=== PATIENT | female | born 1960 | race Two or more races ===

== ENCOUNTER 2022-09-25 20:58 | Inpatient (IN) | payer BC ==
[~2022-09-25] VITALS: Ht 170.2 cm; Wt 72.6 kg
--- NOTE | 2022-09-25 22:33 | NUR ---
Patient is able to ambulate with a walker
[2022-09-25] MEDS ORDERED: IV NORMAL SALINE 1000 ML BAG IV ONE (23:30)
--- NOTE | 2022-09-25 23:31 | NUR ---
Dr Irizarry at bedside MSE in progress
[2022-09-25 23:44] LABS: *BILIRUBIN,URIN NEGATIVE (NEGATIVE); *BLOOD, URINE NEGATIVE (NEGATIVE); *CLARITY,URINE CLEAR (CLEAR); *COLOR,URINE YELLOW (YELLOW); *KETONES,URINE TRACE (NEGATIVE); *UROBILINOGEN,URINE 0.2 E.U./dl (NORMAL); LEUKOCYTE ESTERASE ,URINE NEGATIVE (NEGATIVE); NITRITE, URINE NEGATIVE (NEGATIVE); PH,URINE 5.5 (5.0-8.0); UGLUCOSE NEGATIVE (NEGATIVE)
[2022-09-26] MEDS ORDERED: ALBU6.7H9 IH (00:09)
[2022-09-26] MEDS ORDERED: CITA10TA9 PO (00:09)
[2022-09-26] MEDS ORDERED: ESZO3TAB27 PO (00:09)
[2022-09-26] MEDS ORDERED: NORT10CA PO (00:09)
[2022-09-26] MEDS ORDERED: PANT40TA49 PO (00:09)
[2022-09-26] MEDS ORDERED: LEVO25TA9 PO (00:09)
[2022-09-26] MEDS ORDERED: FLUT16SP16 BNOSTRILS (00:09)
[2022-09-26 00:12] LABS: MEAN CORPUSCULAR HEMOGLOBIN 31.8 uug (24.7-32.8); MEAN CORPUSCULAR VOLUME 88.7 fL (75.5-95.3); PLATELET COUNT (AUTO) 193 K/uL (179-408)
[2022-09-26 00:14] LABS: CARBON DIOXIDE 26 mmol/L (21-32); CHLORIDE 104 mmol/L (98-107); CREATININE 0.7 mg/dL (0.6-1.3); GLUCOSE 153 mg/dL (74-106); POTASSIUM 3.8 mmol/L (3.5-5.1); UREA NITROGEN, BLOOD 16 mg/dL (7-18)
[2022-09-26] MEDS ORDERED: HYDROCODONE/APAP 10-325 MG TABLET PO ONE (00:15)
[2022-09-26] MEDS ORDERED: ONDANSETRON ODT 4 MG TAB.RAPDIS SL ONE (00:15)
[2022-09-26 00:23] LABS: ALANINE AMINOTRANSFERASE 34 U/L (14-59); ALKALINE PHOSPHATASE 53 U/L (50-136); ASPARTATE AMINOTRANSFERASE 26 U/L (15-37); BILIRUBIN,DIRECT 0.2 mg/dL (0.0-0.2); BILIRUBIN,TOTAL 0.7 mg/dL (0.2-1.0); TOTAL PROTEIN, SERUM 5.8 g/dL (6.4-8.2)
[2022-09-26] MEDS ORDERED: ONDANSETRON ODT 4 MG TAB.RAPDIS ONE (00:27)
[2022-09-26] MEDS ORDERED: HYDROCODONE/APAP 10-325 MG TABLET ONE (00:27)
--- NOTE | 2022-09-26 01:52 | NUR ---
Patient's systolic blood pressure is at 78. Dr. Irizarry made aware.
[2022-09-26] MEDS ORDERED: IV NS 1000 ML 1,000 ML IV ONE (02:00)
[2022-09-26] MEDS ORDERED: NOREPINEPHRINE BITARTRATE 8 MG in IV NORMAL SALINE 242 ML IV PRN ×4 (02:00)
--- NOTE | 2022-09-26 02:02 | NUR ---
called Kathryn ALFONSObailer operators supervisor. Made aware about order for Levophed 8mg in IV NS 242ml
[2022-09-26] MEDS ORDERED: NOREPINEPHRINE BITARTRATE 4 MG/4 ML VIAL IV ONE (02:13)
[2022-09-26] MEDS ORDERED: NOREPINEPHRINE BITARTRATE 8 MG in IV NORMAL SALINE 250 ML IV PRN (03:30)
[2022-09-26] MEDS ORDERED: ACETAMINOPHEN 650 MG SUPP.RECT RC PRN (03:30)
[2022-09-26] MEDS ORDERED: IV NS 1000 ML 1,000 ML IV PRN ×2 (03:30→08:30)
--- NOTE | 2022-09-26 04:08 | NUR ---
Patient is able to tolerate food and drink fluids. She is curently eating in her bed.
--- NOTE | 2022-09-26 04:22 | NUR ---
Umm Comer HOUSE MOVING SUPERVISOR at bedside, MSE in progress
--- NOTE | 2022-09-26 05:29 | NUR ---
Patient is able to use bedside commode.
[2022-09-26 06:34] LABS: HEMATOCRIT 24.3 % (31.2-41.9); MEAN CORPUSCULAR VOLUME 87.7 fL (75.5-95.3); PLATELET COUNT (AUTO) 198 K/uL (179-408)
[2022-09-26] MEDS ORDERED: ACETAMINOPHEN 325 MG TABLET ONE ×2 (06:44→11:37)
[2022-09-26 06:46] LABS: CREATININE 0.6 mg/dL (0.6-1.3); POTASSIUM 3.9 mmol/L (3.5-5.1)
[2022-09-26] MEDS: ACETAMINOPHEN 325 MG TABLET PO PRN ×2 (06:48→11:46)
[2022-09-26 06:51] LABS: BILIRUBIN,TOTAL 0.5 mg/dL (0.2-1.0); MAGNESIUM 1.7 mg/dL (1.8-2.4); TOTAL PROTEIN, SERUM 5.4 g/dL (6.4-8.2)
[2022-09-26 07:14] LABS: THYROID STIMULATING HORMONE 1.15 mIU/mL (0.358-3.740)
--- NOTE | 2022-09-26 07:24 | NUR ---
Handwritten report given to charge nurse and supervisor [employer] Mimi.
--- NOTE | 2022-09-26 07:40 | NUR ---
I assume care of Pt at this time. Short staffed charting. Pt is awke A/o x4. RR normal and unlabored. Continue w/ fluid infusion and Levophed drip at rate of 0.02mcg. Lt hip incision site w/ C/D/I dressing. Ice pack applied to Lt hip.
[2022-09-26] MEDS ORDERED: MORPHINE SULFATE 2 MG/1 ML DISP.SYRIN IV PRN (08:15)
[2022-09-26] MEDS ORDERED: ALBUTEROL SULFATE 2.5 MG/3 ML NEBU NEB PRN (08:30)
[2022-09-26] MEDS ORDERED: ALBUTEROL SULFATE 8 GM HFA.AER.AD IH PRN (08:30)
[2022-09-26] MEDS ORDERED: PANTOPRAZOLE SODIUM 40 MG TABLET.DR PO SCH (09:00)
[2022-09-26] MEDS ORDERED: PANTOPRAZOLE SODIUM 40 MG VIAL IV SCH (09:00)
--- NOTE | 2022-09-26 09:03 | NUR ---
Incentive Spirometer provided and instructed how to use. Pt able to return demonstration.
[2022-09-26] MEDS ORDERED: LEVOTHYROXINE SODIUM 25 MCG TABLET ONE (09:04)
[2022-09-26] MEDS ORDERED: CITALOPRAM 10 MG TABLET ONE (09:04)
[2022-09-26] MEDS ORDERED: ENOXAPARIN SODIUM 40 MG/0.4 ML DISP.SYRIN SQ ONE (09:04)
[2022-09-26] MEDS ORDERED: PANTOPRAZOLE SODIUM 40 MG TABLET.DR PO ONE (09:04)
[2022-09-26] MEDS: CITALOPRAM 10 MG TABLET PO SCH (09:08)
[2022-09-26] MEDS: LEVOTHYROXINE SODIUM 25 MCG TABLET PO SCH (09:08)
[2022-09-26] MEDS: PANTOPRAZOLE SODIUM 40 MG TABLET.DR PO SCH (09:08)
[2022-09-26] MEDS: ENOXAPARIN SODIUM 40 MG/0.4 ML DISP.SYRIN SQ SCH (09:09)
--- NOTE | 2022-09-26 09:14 | NUR ---
Assissted to bathroom w/ walker, pt denies dizziness/lightheaded at thime time.
--- NOTE | 2022-09-26 09:16 | NUR ---
Dr Lomax at the bedside for MSE.
[2022-09-26] MEDS ORDERED: MAGNESIUM SULFATE/D5W 200 ML ONE (09:35)
[2022-09-26] MEDS: MAGNESIUM SULFATE/D5W 100 ML IV SCH ×2 (09:45→10:59)
[2022-09-26] MEDS ORDERED: ONDANSETRON 4 MG/2 ML VIAL ONE (13:28)
[2022-09-26] MEDS: ONDANSETRON 4 MG/2 ML VIAL IV PRN ×3 (13:33→23:10)
[2022-09-26 15:10] LABS: HEMATOCRIT 24.3 % (31.2-41.9); MEAN CORPUSCULAR VOLUME 88.9 fL (75.5-95.3); PLATELET COUNT (AUTO) 199 K/uL (179-408)
--- NOTE | 2022-09-26 16:30 | NUR ---
Levophed stopped on trial basis, will continue monitoring BP.
[2022-09-26] MEDS ORDERED: HYDROCODONE/APAP 5-325MG TABLET ONE (16:31)
[2022-09-26] MEDS: HYDROCODONE/APAP 5-325MG TABLET PO PRN ×3 (16:33→23:10)
--- NOTE | 2022-09-26 17:45 | NUR ---
Pt denies being dizzy, no C/O lightheadedness. Dinner tray provided, ate w/ moderate appettite. Denies Lt hip pain at this tiime stating Arlin was helpful.
--- NOTE | 2022-09-26 19:25 | NUR ---
patient is a/ox4, NAD noted
--- NOTE | 2022-09-26 20:04 | NUR ---
report given to Juana ALFONSO - CCU
[2022-09-26 20:28] VITALS: BP 98/51
--- NOTE | 2022-09-26 20:33 | NUR ---
Pt. admitted to CCU bed 1 , under care of Souleymane CASINO SLOT SUPERVISOR [employer]ongs List completed Juana ALFONSO aware of patient's arrival
[2022-09-26 20:49] VITALS: BP 103/61
[2022-09-26] MEDS: NORTRIPTYLINE HCL 10 MG CAPSULE PO SCH (21:00)
[2022-09-26] MEDS ORDERED: ZOLPIDEM 5 MG TABLET PO PRN (21:45)
[2022-09-26 21:58] VITALS: BP 103/57
[2022-09-26] MEDS ORDERED: MEROPENEM 1 G in IV NORMAL SALINE 100 ML IV SCH (22:00)
[2022-09-26] MEDS: VANCOMYCIN IV 1,250 MG in IV DEXTROSE 5% 250 ML IV SCH (22:04)
[2022-09-27] VITALS (18 sets, daily range): BP systolic 84–110; BP diastolic 44–66
[2022-09-27] MEDS: HYDROCODONE/APAP 5-325MG TABLET PO PRN ×3 (05:47→21:58)
[2022-09-27 05:49] LABS: HEMATOCRIT 23.9 % (31.2-41.9); MEAN CORPUSCULAR HEMOGLOBIN 30.4 uug (24.7-32.8); MEAN CORPUSCULAR VOLUME 87.7 fL (75.5-95.3); PLATELET COUNT (AUTO) 207 K/uL (179-408)
[2022-09-27] MEDS: MEROPENEM 1 G in IV NORMAL SALINE 100 ML IV SCH ×3 (05:51→21:55)
[2022-09-27 06:06] LABS: BILIRUBIN,TOTAL 0.9 mg/dL (0.2-1.0); CREATININE 0.6 mg/dL (0.6-1.3); MAGNESIUM 1.7 mg/dL (1.8-2.4); PHOSPHOROUS 2.2 mg/dL (2.5-4.9); TOTAL PROTEIN, SERUM 5.5 g/dL (6.4-8.2)
--- NOTE | 2022-09-27 06:33 | NUR ---
Pt recieved via bed as a new admission. Pt is alert and oriented x4 but very subdued in her mannerism. Pt c/o of being in the ER for two days and it was very noisy. Pt oriented to the unit and she says that she prefers to go to the bathroom. Pt is settled in bed. The patient requests a sleeping pill. Ambien administered per [employer] ENGINEER Ashley Ashford's orders. Pt awoke X2 times during the night and was slightly disoriented. She was able to be reoriented quickly. She went to bathroom twice but she urinated on the floor in the process. Bedside commode to be placed a the bedside. Report endorsed to day shift RN. Vital signs stable at the change of shift.
[2022-09-27] MEDS: LEVOTHYROXINE SODIUM 25 MCG TABLET PO SCH (07:45)
[2022-09-27] MEDS: PANTOPRAZOLE SODIUM 40 MG TABLET.DR PO SCH (07:45)
[2022-09-27] MEDS: MAGNESIUM SULFATE/D5W 100 ML IV SCH ×2 (07:46→10:04)
[2022-09-27] MEDS ORDERED: IOHEXOL 350 100 ML INFUS..BTL ONE (09:41)
[2022-09-27] MEDS ORDERED: IV NORMAL SALINE 250 ML IV ONE (09:41)
[2022-09-27] MEDS ORDERED: SWABABLE VALVE TRANSFER SET EA MC ONE (09:41)
[2022-09-27] MEDS: ACETAMINOPHEN 325 MG TABLET PO PRN ×2 (09:54→21:02)
[2022-09-27] MEDS: VANCOMYCIN IV 1,250 MG in IV DEXTROSE 5% 250 ML IV SCH ×2 (10:05→21:01)
[2022-09-27] MEDS: CITALOPRAM 10 MG TABLET PO SCH (10:05)
[2022-09-27] MEDS: ENOXAPARIN SODIUM 40 MG/0.4 ML DISP.SYRIN SQ SCH (10:08)
--- NOTE | 2022-09-27 10:39 | NUR ---
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 per Dr. Antonieta ibrahim to proceed with CT ANGIO.
[2022-09-27] MEDS ORDERED: SODIUM PHOSPHATE MM 7.5 MMOL in IV NORMAL SALINE 100 ML IV ONE (12:00)
--- NOTE | 2022-09-27 14:58 | NUR ---
report given to [place] RN.
[2022-09-27] MEDS ORDERED: ESZO2TAB31 PO (15:45)
--- NOTE | 2022-09-27 18:22 | NUR ---
PT alert and oriented x 4. Noted dressing on left hip. Reinforce THR precautions with patient. Pt verbalized understanding. Applied ice on left hip. [place] given for pain of 6/10 discussed side effect of norce re: constipation. PT acknowledge to increase fiber intake to prevent constipation. No s/s of iv infiltration on left ac and right hand.
[2022-09-27] MEDS: NORTRIPTYLINE HCL 10 MG CAPSULE PO SCH (21:03)
--- NOTE | 2022-09-27 22:00 | NUR ---
Patient refused IV vancocin after medication was scanned and mixed. Patient also wants her Pamelor to be scheduled during the day time. Patient medicated for pain as per doctor's order and upon request. Patient educated about side effect of pain med and refusal of IV medications patient verbalized understanding.
[2022-09-28] MEDS: ACETAMINOPHEN 325 MG TABLET PO PRN ×2 (03:37→12:01)
[2022-09-28] MEDS: MEROPENEM 1 G in IV NORMAL SALINE 100 ML IV SCH (06:00)
[2022-09-28] MEDS: LEVOTHYROXINE SODIUM 25 MCG TABLET PO SCH (06:22)
[2022-09-28] MEDS: PANTOPRAZOLE SODIUM 40 MG TABLET.DR PO SCH (06:22)
[2022-09-28 08:25] LABS: HEMATOCRIT 22.4 % (31.2-41.9); MEAN CORPUSCULAR HEMOGLOBIN 30.6 uug (24.7-32.8); MEAN CORPUSCULAR VOLUME 88.6 fL (75.5-95.3); PLATELET COUNT (AUTO) 192 K/uL (179-408)
[2022-09-28 08:42] LABS: BILIRUBIN,TOTAL 0.5 mg/dL (0.2-1.0); CREATININE 0.6 mg/dL (0.6-1.3); MAGNESIUM 1.8 mg/dL (1.8-2.4); PHOSPHOROUS 3.2 mg/dL (2.5-4.9); POTASSIUM 3.9 mmol/L (3.5-5.1); TOTAL PROTEIN, SERUM 5.8 g/dL (6.4-8.2)
[2022-09-28] MEDS: CITALOPRAM 10 MG TABLET PO SCH (08:48)
[2022-09-28] MEDS: ENOXAPARIN SODIUM 40 MG/0.4 ML DISP.SYRIN SQ SCH (08:53)
--- NOTE | 2022-09-28 08:57 | NUR ---
Patient already took Pamelor this morning. Patient has been refusing IV ABT DR Clark made aware order received to discontinue all IV antibiotics.
[2022-09-28] MEDS ORDERED: NORTRIPTYLINE HCL 10 MG CAPSULE PO SCH (09:00)
[2022-09-28] MEDS ORDERED: SOD FERRIC GLUC COMPLX/SUCROSE 125 MG in IV NORMAL SALINE 100 ML IV ONE (11:00)
[2022-09-28] MEDS ORDERED: VANCOMYCIN IV 1,250 MG in IV DEXTROSE 5% 250 ML IV SCH (11:00)
[2022-09-28 11:07] VITALS: BP 101/58
--- NOTE | 2022-09-28 11:18 | NUR ---
Patient refused Iron IV medication she wants to go home, DR Clark was informed of patient refusal order received to discontinue IV iron medication. DR Clark will work on discharge order this afternoon. Patient made aware.
--- NOTE | 2022-09-28 11:23 | NUR ---
Orthostatic blood pressure lyin/57, HR 98, sitting 101/58, HR 109, standing 94/53, HR 110.
[2022-09-28] MEDS ORDERED: FERR324T17 PO (12:59)
--- NOTE | 2022-09-28 13:15 | NUR ---
Patient is discharged to home. discharge instructions given patient verbalized understanding. all personal belonging taken with patient. Left unit via wheelchair alert and verbal in no distress escorts by nursing staff vital signs stable. (see vital flow sheet)
== END 2022-09-28 13:15 | disposition home or self-care (01) | DRG 923 ==
LOC: ER 20:58 → TRANSITION 09-26 02:45 → CCU 09-26 20:05 → MEDSURG3 09-27 15:35
PROVIDERS: ADMIT Registered Nurse; ATTEND Internal Medicine
DX: T88.2XXA Shock due to anesthesia, initial encounter (principal); E44.0 Moderate protein-calorie malnutrition; D68.59 Other primary thrombophilia; D62 Acute posthemorrhagic anemia; J45.909 Unspecified asthma, uncomplicated; E03.9 Hypothyroidism, unspecified; D50.9 Iron deficiency anemia, unspecified; E83.42 Hypomagnesemia; E86.0 Dehydration; K21.9 Gastro-esophageal reflux disease without esophagitis; Z88.0 Allergy status to penicillin; Z88.1 Allergy status to other antibiotic agents; Z96.642 Presence of left artificial hip joint; Y83.8 Other surgical procedures as the cause of abnormal reaction of the patient, or of later complication, without mention of misadventure at the time of the procedure; Y92.530 Ambulatory surgery center as the place of occurrence of the external cause; R55 Syncope and collapse; I95.9 Hypotension, unspecified; Z74.09 Other reduced mobility; Z20.822 Contact with and (suspected) exposure to COVID-19; M19.90 Unspecified osteoarthritis, unspecified site; G89.29 Other chronic pain; F32.A Depression, unspecified
CPT/HCPCS: 36415; 70450; 71045; 71275; 82533; 83550; 83605; 83690; 83735; 84100; 84443; 84484; 85025; 87040; 93005; 93307; A4663; G0378; J1650; J2185; J2405; J2916; J3475; J3490; J7040; J7050; Q0162; Q9967